=== PATIENT | female | born 1960 | race Caucasian/White ===

== ENCOUNTER 2022-06-19 17:01 | Emergency (ER) | payer SELFPAY ==
--- NOTE | 2022-06-19 18:33 | RAD REPORT ---
EXAM DESCRIPTION: RAD - Forearm Right - 06/19/2022 6:07 pm CLINICAL HISTORY: PAINafter fall 1 month earlier COMPARISON: Forearm Right dated 02/14/2016 FINDINGS: No fracture is identified. There is no dislocation or periosteal reaction noted. No foreign body or other soft tissue abnormality. IMPRESSION: Negative right forearm examination.
--- NOTE | 2022-06-19 18:34 | RAD REPORT ---
EXAM DESCRIPTION: RAD - Tib Fib Right - 06/19/2022 6:07 pm CLINICAL HISTORY: PAINafter fall COMPARISON: No comparisons FINDINGS: No fracture of the tibia or fibula identifiable. Patient has severe knee joint degenerativ e change. Significant patellofemoral and medial compartment joint space narrowing seen with large mar ginal spurs. Intercondylar notch, tibial spine and lateral compartment spurring present to a lesser d egree. No significant degenerative change at the ankle joint. Patient has small plantar and Achilles spurs. There is no dislocation or periosteal reaction noted. No pathologic bone process. Soft tissues are prominent but no air or foreign body seen in the soft tissues. IMPRESSION: Negative right tibia & fibula examination for fracture or acute finding Severe knee joint degenerative change.
[2022-06-19] MEDS ORDERED: HYDROCODONE/APAP 10/325 TAB ONE (19:02)
--- NOTE | 2022-06-19 19:55 | EDPHYS ---
Physician Documentation [facility] Name: aC Marin Age: 62 yrs Sex: Female : 1960 Arrival Date: 06/19/2022 Time: 17:04 Bed 16 Private MD: Renuka Jackson ED Physician Clinton Daniel HPI: 06/19 18:37 This 62 yrs old Female presents to ER via Ambulatory with complaints of Arm Injury, Leg pm1 Injury. 18:37 The patient or guardian complains of contusion, pain. The complaints affect the palmar pm1 aspect of right forearm and right knee and right wright. Context: The problem was sustained at home, resulted from a fall. Onset: The symptoms/episode began/occurred 5 week(s) ago. Treatment prior to arrival includes: no previous treatment. Modifying factors: The symptoms are alleviated by nothing. the symptoms are aggravated by movement. Associated signs and symptoms: The patient has no apparent associated signs or symptoms, Pertinent negatives: deformity, numbness, swelling, tingling. Severity of symptoms: in the emergency department the symptoms have improved. The patient has not experienced similar symptoms in the past. The patient has not recently seen a physician. 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 - Social history:: Smoking status: Patient denies any tobacco usage or history of. ROS: 18:37 Constitutional: Negative for fever, chills, and weight loss, Cardiovascular: Negative pm1 for chest pain, palpitations, and edema, Respiratory: Negative for shortness of breath, cough, wheezing, and pleuritic chest pain, Abdomen/GI: Negative for abdominal pain, nausea, vomiting, diarrhea, and constipation. 18:37 Skin: Negative for injury, rash, and discoloration, Neuro: Negative for headache, weakness, numbness, tingling, and seizure. 18:37 MS/extremity: Positive for pain, of the right knee and right wright and palmar aspect of right forearm. 18:37 All other systems are negative. Exam: 18:37 Constitutional: This is a well developed, well nourished patient who is awake, alert, pm1 and in no acute distress. Head/Face: Normocephalic, atraumatic. 18:37 Skin: Warm, dry with normal turgor. Normal color with no rashes, no lesions, and no evidence of cellulitis. 18:37 Eyes: Exam is negative for acute changes, Periorbital structures: no acute changes, Extraocular movements: no acute changes, Conjunctiva: no acute changes, no injection. 18:37 ENT: Exam is negative for acute changes, Mouth: no acute changes, Lips: normal, moist, Oral mucosa: normal, pink and intact, moist. 18:37 Cardiovascular: Exam negative for acute changes, Rate: normal, Rhythm: regular, Pulses: no pulse deficits are appreciated. 18:37 Respiratory: Exam negative for acute changes, respiratory distress, shortness of breath. 18:37 Musculoskeletal/extremity: Exam is negative for acute changes, Extremities: grossly normal except: noted in the right wright and right knee and palmar aspect of right forearm: There is no evidence of decreased ROM, deformity, ROM: no acute changes. 18:37 Neuro: Exam negative for acute changes, Orientation: is normal, Mentation: is normal, Motor: moves all fours. Vital Signs: 17:17 BP 156 / 82; Pulse 86; Resp 18; Temp 97.7; Pulse Ox 97% ; Weight 136.08 kg; Height 5 ll1 ft. 7 in. (170.18 cm); Pain 7/10; 19:23 BP 147 / 66; Pulse 82; Resp 18 S; Pulse Ox 98% on R/A; ha1 17:17 Body Mass Index 46.99 (136.08 kg, 170.18 cm) ll1 MDM: 17:37 Patient medically screened. pm1 19:54 Data reviewed: vital signs. Data interpreted: Pulse oximetry: on room air is 97 %. pm1 Interpretation: normal. Counseling: I had a detailed discussion with the patient and/or guardian regarding: the historical points, exam findings, and any diagnostic results supporting the discharge/admit diagnosis, radiology results, the need for outpatient follow up, to return to the emergency department if symptoms worsen or persist or if there are any questions or concerns that arise at home. 20:27 ED course: [place] reviewed. pm1 06/19 17:47 Order name: Tib Fib Right XRAY; Complete Time: 18:37 pm1 06/19 17:47 Order name: Forearm Right XRAY; Complete Time: 18:37 pm1 Administered Medications: 19:03 Drug: [place] (HYDROcodone-acetaminophen) 10 mg-325 mg 1 tabs Route: PO; ko1 19:30 Follow up: Response: No adverse reaction; Pain is decreased; RASS: Alert and Calm (0) ha1 Disposition Summary: 06/19/22 19:55 Discharge Ordered Location: Home pm1 Problem: new pm1 Symptoms: have improved pm1 Condition: Stable pm1 Diagnosis - Contusion of right forearm pm1 - Contusion of right knee pm1 - Contusion of right lower leg pm1 Followup: pm1 - With: Emergency Department - When: As needed - Reason: Worsening of condition Followup: pm1 - With: Private Physician - When: 2 - 3 days - Reason: Recheck today's complaints, Continuance of care, Re-evaluation by your physician Discharge Instructions: - Discharge Summary Sheet pm1 - Contusion pm1 - Fall Prevention in the Home, Adult pm1 Forms: - Medication Reconciliation Form pm1 - Thank You Letter pm1 - Antibiotic Education pm1 - Prescription Opioid Use pm1 Prescriptions: - Tylenol-Codeine #3 300 mg-30 mg Oral - take 2 tablet by ORAL route every 6 hours As needed; 20 tablet; Refills: 0, pm1 Product Selection Permitted Signatures: Dispatcher [employer] EDMS Danielito Leo NP [employer]SPORTATION TECHNICIAN pm1 Porfirio Mendez RN RN ll1 Tanja Chávez RN RN ko1 Lina Silva RN ha1 Corrections: (The following items were deleted from the chart) 17:17 17:13 PSHx: R heel ttendon SX; ll1 ll1 18:07 17:48 Knee Right 3 View+RAD.RAD.BRZ ordered. EDWY EDMS
--- NOTE | 2022-06-19 19:55 | ER ---
Nurse's Notes [facility] Name: Ca Marin Age: 62 yrs Sex: Female : 1960 Arrival Date: 06/19/2022 Time: 17:04 Bed 16 Private MD: Renuka Jackson Diagnosis: Contusion of right forearm;Contusion of right knee;Contusion of right lower leg Presentation: 06/19 17:17 Chief complaint: Patient states: Fell May.13. R wrist/lower arm pain and R leg pain ll1 since. Coronavirus screen: Vaccine status: Patient reports being unvaccinated. Client denies travel out of the [place] in the last 14 days. At this time, the client does not indicate any symptoms associated with coronavirus-19. Ebola Screen: Patient denies travel to an Ebola-affected area in the 21 days before illness onset. Initial Sepsis Screen: Does the patient meet any 2 criteria? No. Patient's initial sepsis screen is negative. Does the patient have a suspected source of infection? Yes: Bone or joint infection. Risk Assessment: Do you want to hurt yourself or someone else? Patient reports no desire to harm self or others. Onset of symptoms was May 13, 2022. 17:17 Method Of Arrival: Ambulatory ll1 17:17 Acuity: TABITHA 4 ll1 Triage Assessment: 17:19 General: Appears uncomfortable, Behavior is cooperative, appropriate for age. Pain: ll1 Complains of pain in right arm Pain currently is 7 out of 10 on a pain scale. Quality of pain is described as aching. Musculoskeletal: Circulation, motion, and sensation intact. Capillary refill < 3 seconds, Tenderness present in R wrist. Injury Description: Bruise. 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 - Social history:: Smoking status: Patient denies any tobacco usage or history of. Screenin:30 Abuse screen: Denies threats or abuse. Denies injuries from another. Nutritional ko1 screening: No deficits noted. Tuberculosis screening: No symptoms or risk factors identified. Fall Risk Fall in past 12 months (25 points). Assessment: 17:30 General: Appears in no apparent distress. uncomfortable, Behavior is calm, cooperative, ko1 appropriate for age. Pain: Complains of pain in right arm. Neuro: No deficits noted. Cardiovascular: No deficits noted. Respiratory: No deficits noted. GI: No deficits noted. : No deficits noted. EENT: No deficits noted. Derm: No deficits noted. Musculoskeletal: No deficits noted. Injury Description: Bruise sustained to palmar aspect of right forearm. 19:23 General: Appears in no apparent distress. Behavior is calm, cooperative. Pain: ha1 Complains of pain in right arm and right leg. Neuro: Level of Consciousness is awake, alert, obeys commands, Oriented to person, place, time, situation. Cardiovascular: Patient's skin is warm and dry. Respiratory: Airway is patent Trachea midline Respiratory effort is even, unlabored, Respiratory pattern is regular, symmetrical. GI: No signs and/or symptoms were reported involving the gastrointestinal system. Abdomen is non-distended, obese, Bowel sounds present X 4 quads. : No signs and/or symptoms were reported regarding the genitourinary system. Derm: No signs and/or symptoms reported regarding the dermatologic system. Vital Signs: 17:17 BP 156 / 82; Pulse 86; Resp 18; Temp 97.7; Pulse Ox 97% ; Weight 136.08 kg; Height 5 ll1 ft. 7 in. (170.18 cm); Pain 7/10; 19:23 BP 147 / 66; Pulse 82; Resp 18 S; Pulse Ox 98% on R/A; ha1 17:17 Body Mass Index 46.99 (136.08 kg, 170.18 cm) ll1 ED Course: 17:04 Patient arrived in ED. mr 17:05 Renuka Jackson is Private Physician. mr 17:19 Triage completed. ll1 17:19 Arm band placed on Patient placed in an exam room, on a stretcher. ll1 17:30 Patient has correct armband on for positive identification. Bed in low position. Call ko1 light in reach. Side rails up X 1. 17:35 Danielito Leo NP is PHCP. pm1 17:35 Clinton Daniel MD is Attending Physician. pm1 17:37 Tanja Chávez, RN is Primary Nurse. ko1 18:09 Tib Fib Right XRAY In Process Unspecified. EDMS 18:09 Forearm Right XRAY In Process Unspecified. EDMS 20:37 No provider procedures requiring assistance completed. Patient did not have IV access ha1 during this emergency room visit. Administered Medications: 19:03 Drug: [place] (HYDROcodone-acetaminophen) 10 mg-325 mg 1 tabs Route: PO; ko1 19:30 Follow up: Response: No adverse reaction; Pain is decreased; RASS: Alert and Calm (0) ha1 Medication: 20:37 VIS not applicable for this client. ha1 Outcome: 19:55 Discharge ordered by MD. pm1 20:37 Discharged to home ambulatory. ha1 20:37 Condition: stable 20:37 Discharge instructions given to patient, Instructed on discharge instructions, follow up and referral plans. medication usage, Demonstrated understanding of instructions, follow-up care, medications, Prescriptions given X 1. 20:37 Patient left the ED. ha1 Signatures: Dispatcher [employer] EDTX Ramiro Nathalie LoeDanielito, FEATHER RENOVATOR FEATHER RENOVATOR pm1 Porfirio Mendez RN RN ll1 Lina Silva RN RN ha1 Tanja Chávez, RN RN ko1 Corrections: (The following items were deleted from the chart) 17:17 17:13 PSHx: R heel ttendon SX; ll1 ll1 17:19 17:17 Acuity: TABITHA 3 ll1 ll1
[2022-06-19 21:10] VITALS: TEMP 97.7
[2022-06-19 21:11] VITALS: BP 147/66; O2SAT 98
== END 2022-06-19 20:37 | disposition home or self-care (01) ==
LOC: ER 17:01
DX: S50.11XA Contusion of right forearm, initial encounter (principal); S80.01XA Contusion of right knee, initial encounter; S80.11XA Contusion of right lower leg, initial encounter; I10 Essential (primary) hypertension
CPT/HCPCS: 99283

== ENCOUNTER 2022-09-09 18:22 | Emergency (ER) | payer SELFPAY ==
--- NOTE | 2022-09-09 20:10 | RAD REPORT ---
EXAM DESCRIPTION: RAD - Chest Single View - 09/09/2022 8:00 pm CLINICAL HISTORY: COUGH COMPARISON: CHEST PA AND LAT 2 VIEW dated 03/24/2008 FINDINGS: Lines: None. Lungs: No evidence of edema or pneumonia. Pleural: No significant pleural effusions or pneumothorax. Cardiac: The heart size is within normal limits. Mediastinum: Within normal limits. Bones: No acute fractures. Other: None IMPRESSION: No acute cardiopulmonary disease.
[2022-09-09] MEDS ORDERED: CEFTRIAXONE 1000 MG/VIAL ONE (22:04)
[2022-09-09] MEDS ORDERED: NA CHLORIDE 0.9% 1,000 ML ONE (22:04)
[2022-09-09] MEDS ORDERED: ASPIRIN 81 MG CHEWABLE TABLET ONE (22:04)
[2022-09-09] MEDS ORDERED: predniSONE 20 MG TAB ONE (22:04)
[2022-09-09] MEDS ORDERED: METHYLPREDNISOLONE 125 MG INJ ONE (22:04)
[2022-09-09] MEDS ORDERED: Magnesium Sulfate 2gm IVPB 2 G/50 ML BAG IV ONE (22:05)
[2022-09-09 22:08] LABS: Absolute Lymphocytes (CBC) 2.4 K/uL (0.7-4.9); Hematocrit 44.7 % (36.0-45.0); Lymphocytes % 20.9 % (15.3-44.8); MCV 90.1 fL (80-100); MPV 8.1 fL (7.6-11.3); RBC Red Blood Cell Count 4.96 M/uL (3.86-4.86)
[2022-09-09] MEDS ORDERED: ALBUTEROL 2.5 MG/3 ML NEB SOL ONE (22:22)
[2022-09-09] MEDS ORDERED: IPRATROPIUM BROM 0.5MG/2.5ML ONE (22:23)
[2022-09-09 22:47] LABS: SARS-COV-2 RT PCR NEGATIVE (NEGATIVE)
[2022-09-09] MEDS ORDERED: LEVALBUTEROL 1.25 MG/3 ML NEB ONE (23:08)
[2022-09-09 23:10] LABS: ALT/SGPT 21 U/L (13-56); AST/SGOT 11 U/L (15-37); Albumin 3.5 g/dL (3.4-5.0); Alkaline Phosphatase 113 U/L (45-117); BUN Blood Urea Nitrogen 13 mg/dL (7-18); Bicarbonate 28 mmol/L (21-32); Bilirubin Total 0.3 mg/dL (0.2-1.0); Glomerular Filtration Rate 73 ml/min (=/>90); Glucose Level 103 mg/dL (74-106); Magnesium 2.9 mg/dL (1.6-2.4); NT PRO-BNP 56 pg/mL (<125); Potassium 3.7 mmol/L (3.5-5.1); Protein, Total 6.7 g/dL (6.4-8.2); Sodium Level 140 mmol/L (136-145)
[2022-09-09 23:13] LABS: Bilirubin Direct < 0.1 mg/dL (0-0.2)
--- NOTE | 2022-09-09 23:22 | EDPHYS ---
Physician Documentation [facility] Name: Ca Marin Age: 62 yrs Sex: Female : 1960 Arrival Date: 09/09/2022 Time: 18:28 Bed 9 Private MD: Heidy Miranda ED Physician Nestor Walters HPI: 09/09 21:41 This 62 yrs old Female presents to ER via Ambulatory with complaints of Chest braden Pain, Chest Congestion. 21:41 The patient or guardian reports chest pain that is located primarily in the anterior [facility] chest wall. Onset: 5 day(s) ago. The pain does not radiate. Associated signs and symptoms: Pertinent positives: cough, shortness of breath. The chest pain is described as aching. Duration: The patient or guardian reports multiple episodes, with no pattern. Modifying factors: The symptoms are alleviated by remaining still, the symptoms are aggravated by activity, cough. Severity of pain: At its worst the pain was mild in the emergency department the pain is unchanged. The patient has experienced similar episodes in the past, several times. 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 - Social history:: Smoking status: Patient denies any tobacco usage or history of. - Family history:: not pertinent. ROS: 21:41 Constitutional: Negative for fever, chills, and weight loss, Eyes: Negative for injury, braden pain, redness, and discharge, ENT: Negative for injury, pain, and discharge, Neck: Negative for injury, pain, and swelling, Cardiovascular: Negative for chest pain, palpitations, and edema, Abdomen/GI: Negative for abdominal pain, nausea, vomiting, diarrhea, and constipation, Back: Negative for injury and pain, : Negative for injury, bleeding, discharge, and swelling, MS/Extremity: Negative for injury and deformity, Skin: Negative for injury, rash, and discoloration, Neuro: Negative for headache, weakness, numbness, tingling, and seizure, Psych: Negative for depression, anxiety, suicide ideation, homicidal ideation, and hallucinations, Allergy/Immunology: Negative for hives, rash, and allergies, Endocrine: Negative for neck swelling, polydipsia, polyuria, polyphagia, and marked weight changes, Hematologic/Lymphatic: Negative for swollen nodes, abnormal bleeding, and unusual bruising. 21:41 Respiratory: Positive for cough, shortness of breath, wheezing, inspiratory, expiratory. Exam: 21:41 Constitutional: This is a well developed, well nourished patient who is awake, alert, braden and in no acute distress. Head/Face: Normocephalic, atraumatic. Eyes: Pupils equal round and reactive to light, extra-ocular motions intact. Lids and lashes normal. Conjunctiva and sclera are non-icteric and not injected. Cornea within normal limits. Periorbital areas with no swelling, redness, or edema. ENT: Nares patent. No nasal discharge, no septal abnormalities noted. Tympanic membranes are normal and external auditory canals are clear. Oropharynx with no redness, swelling, or masses, exudates, or evidence of obstruction, uvula midline. Mucous membranes moist. Neck: Trachea midline, no thyromegaly or masses palpated, and no cervical lymphadenopathy. Supple, full range of motion without nuchal rigidity, or vertebral point tenderness. No Meningismus. Chest/axilla: Normal chest wall appearance and motion. Nontender with no deformity. No lesions are appreciated. Cardiovascular: Regular rate and rhythm with a normal S1 and S2. No gallops, murmurs, or rubs. Normal PMI, no JVD. No pulse deficits. Abdomen/GI: Soft, non-tender, with normal bowel sounds. No distension or tympany. No guarding or rebound. No evidence of tenderness throughout. Back: No spinal tenderness. No costovertebral tenderness. Full range of motion. Female : Normal external genitalia. Skin: Warm, dry with normal turgor. Normal color with no rashes, no lesions, and no evidence of cellulitis. MS/ Extremity: Pulses equal, no cyanosis. Neurovascular intact. Full, normal range of motion. Neuro: Awake and alert, GCS 15, oriented to person, place, time, and situation. Cranial nerves II-XII grossly intact. Motor strength 5/5 in all extremities. Sensory grossly intact. Cerebellar exam normal. Normal gait. Psych: Awake, alert, with orientation to person, place and time. Behavior, mood, and affect are within normal limits. 21:41 Respiratory: mild respiratory distress is noted, Respirations: tachypnea, 78 Breath sounds: bronchial sounds, that are mild, decreased breath sounds, that are mild, are scattered, rhonchi, that are mild, are scattered, stridor, is not appreciated, + upper airway congestion. wheezing: inspiratory expiratory 21:46 Musculoskeletal/extremity: ROM: intact in all extremities, Circulation is intact in all braden extremities. Sensation intact. Compartment Syndrome exam of affected extremity: is normal. DVT Exam: No signs of deep vein thrombosis. no pain, no swelling, no tenderness, negative Homans' sign noted on exam, no appreciated bluish discoloration, no erythema, no increased warmth. 21:56 ECG was reviewed by the Attending Physician. [facility] Vital Signs: 19:17 BP 155 / 77; Pulse 78; Resp 22; Temp 98.6; Pulse Ox 98% ; Weight 136.08 kg; Height 5 5 ft. 7 in. (170.18 cm); Pain 0/10; 22:45 BP 114 / 77; Pulse 73; Resp 19 S; Pulse Ox 100% on R/A; lg3 23:35 BP 135 / 75; Pulse 84; Resp 18; Pulse Ox 100% on R/A; lg3 19:17 Body Mass Index 46.99 (136.08 kg, 170.18 cm) 5 MDM: 19:27 Patient medically screened. [facility] 21:47 Differential diagnosis: abnormal EKG, acute myocardial infarction, acute pericarditis, braden gastritis, hiatal hernia, pancreatitis, pleurisy, pneumonia, pulmonary embolus, stable angina, unstable angina. HEART Score: History: Slightly Suspicious (0), ECG: Normal (0), Age: > 45 and < 65 years (1), Risk Factors: 1 or 2 risk factors (1), [+ Family HX] [Obesity] Troponin: < or = 1 x Normal Limit (0). The patient was given aspirin in the Emergency Department. JOVANNA Risk Score: TOTAL SCORE = 0. Data reviewed: vital signs, nurses notes, lab test result(s), EKG, radiologic studies, plain films. Consideration of Admission/Observation Patient was admitted/placed on observation. Escalation of care including admission/observation considered. I considered the following discharge prescriptions or medication management in the emergency department Medications were administered in the Emergency Department. See MAR. Test considered but Not performed: CT: chest. 09/09 19:34 Order name: Basic Metabolic Panel; Complete Time: 23:19 [facility] 09/09 19:34 Order name: CBC with Diff; Complete Time: 22:57 [facility] 09/09 19:34 Order name: LFT's; Complete Time: 23:19 [facility] 09/09 19:34 Order name: Magnesium; Complete Time: 23:19 [facility] 09/09 19:34 Order name: NT PRO-BNP; Complete Time: 23:19 [facility] 09/09 19:34 Order name: PT-INR; Complete Time: 22:23 [facility] 09/09 19:34 Order name: Troponin HS; Complete Time: 23:19 [facility] 09/09 19:34 Order name: XRAY Chest (1 view); Complete Time: 21:15 [facility] 09/09 19:34 Order name: COVID-19/FLU A+B; Complete Time: 22:57 [facility] 09/09 19:34 Order name: Blood Culture Adult (2) 09/09 19:34 Order name: Lactate w/ 2H reflex if indic.; Complete Time: 22:23 [facility] 09/09 21:43 Order name: D-Dimer; Complete Time: 23:21 mw 09/09 19:34 Order name: EKG; Complete Time: 19:35 [facility] 09/09 19:34 Order name: Cardiac monitoring; Complete Time: 21:54 [facility] 09/09 19:34 Order name: EKG - Nurse/Tech; Complete Time: 21:54 [facility] 09/09 19:34 Order name: IV Saline Lock; Complete Time: 21:54 [facility] 09/09 19:34 Order name: Labs collected and sent; Complete Time: 21:54 [facility] 09/09 19:34 Order name: O2 Per Protocol; Complete Time: 21:54 [facility] 09/09 19:34 Order name: O2 Sat Monitoring; Complete Time: 21:54 braden EC:56 Rate is 76 beats/min. Rhythm is regular. QRS Excel is Normal. GA interval is normal. QRS braden interval is normal. QT interval is normal. No Q waves. T waves are Normal. No ST changes noted. Clinical impression: NSR w/ Non-specific ST/T Changes and No evidence of ischemia. Interpreted by me. Reviewed by me. Administered Medications: 22:19 Drug: Aspirin Chewable Tablet 81 mg Route: PO; lg3 23:10 Follow up: Response: No adverse reaction lg3 22:19 Drug: Magnesium Sulfate 2 grams Route: IVPB; Infused Over: 2 hrs; Site: right lg3 antecubital; 23:36 Follow up: Response: No adverse reaction; IV Status: Completed infusion; IV Intake: [id number] 22:20 Drug: NS 0.9% 1000 ml Route: IV; Rate: 75 ml/hr; Site: right antecubital; lg3 23:36 Follow up: Response: No adverse reaction; IV Intake: 200ml lg3 22:20 Drug: Rocephin (cefTRIAXone) 1 grams Route: IV; Rate: per protocol; Site: right lg3 antecubital; 23:09 Follow up: Response: No adverse reaction; IV Intake: 10ml lg3 22:20 Drug: predniSONE 60 mg Route: PO; lg3 23:09 Follow up: Response: No adverse reaction lg3 22:20 Drug: SOLU-Medrol (methylPrednisoLONE) 125 mg Route: IVP; Site: right antecubital; lg3 23:09 Follow up: Response: No adverse reaction lg3 22:43 Drug: Albuterol - atroVENT (ipratropium) (3:1) (2.5 mg - 0.5 mg) 3 ml Route: Nebulizer; lg3 23:10 Follow up: Response: No adverse reaction lg3 23:03 CANCELLED (Other Intervention Used): Albuterol 5 mg Inhalation once lg3 23:09 Drug: Xopenex (levalbuterol) (3) 1.25 mg Route: Inhalation; lg3 23:36 Follow up: Response: No adverse reaction lg3 Disposition Summary: 09/09/22 23:21 Discharge Ordered Location: Home braden Problem: new braden Symptoms: have improved braden Condition: Stable braden Diagnosis - COPD/ Chronic obstructive pulmonary disease with (acute) exacerbation braden - Dyspnea braden - Obesity, unspecified braden Followup: braden - With: Private Physician - When: 2 - 3 days - Reason: Recheck today's complaints, Continuance of care, Re-evaluation by your physician Followup: braden - With: - When: 2 - 3 days - Reason: Recheck today's complaints, Re-evaluation by your physician Discharge Instructions: - Discharge Summary Sheet braden - Chronic Bronchitis, Adult braden - Chronic Obstructive Pulmonary Disease braden - Chronic Obstructive Pulmonary Disease Exacerbation braden - Chronic Obstructive Pulmonary Disease, [id number] braden - Obesity, Adult braden - Cough, Adult [facility] Forms: - Medication Reconciliation Form [facility] - Thank You Letter [facility] - Antibiotic Education [facility] - Prescription Opioid Use [facility] Prescriptions: - Augmentin 875-125 mg Oral Tablet - take 1 tablet by ORAL route every 12 hours for 10 days; 20 tablet; Refills: 0, [facility] Product Selection Permitted - Albuterol Sulfate 2.5 mg /3 mL (0.083 %) Inhalation Solution for Nebulization - inhale 1 unit by NEBULIZATION route every 8 hours As needed; 1 box; Refills: 0, [facility] Product Selection Permitted - Prednisone 20 mg Oral Tablet - take 2 tablets by ORAL route once daily for 5 days; 10 tablet; Refills: 0, [facility] Product Selection Permitted - albuterol sulfate 90 mcg/actuation Inhalation HFA aerosol inhaler - inhale 2 puff by INHALATION route every 4-6 hours; 1 Pump; Refills: 0, Product [facility] Selection Permitted Signatures: Dispatcher [employer] Nestor Castillo MD MD cha Gibson, Lacie, RN RN lg3 Anne Bhatia RN RN jh5 Corrections: (The following items were deleted from the chart) 23:03 22:58 Albuterol 5 mg Inhalation once ordered. braden lg3
--- NOTE | 2022-09-09 23:22 | ER ---
Nurse's Notes [facility] Name: Ca Marin Age: 62 yrs Sex: Female : 1960 Arrival Date: 09/09/2022 Time: 18:28 Bed 9 Private MD: Heidy Miranda Diagnosis: COPD/ Chronic obstructive pulmonary disease with (acute) exacerbation;Dyspnea;Obesity, unspecified Presentation: 09/09 19:17 Chief complaint: Patient states: I have a heart arrythmia, and i had a flare up and I jh5 been SOB since [place]. Coronavirus screen: Vaccine status: Patient reports being unvaccinated. Client denies travel out of the [place] in the last 14 days. Ebola Screen: Patient negative for fever greater than or equal to 101.5 degrees Fahrenheit, and additional compatible Ebola Virus Disease symptoms Patient denies exposure to infectious person. Patient denies travel to an Ebola-affected area in the 21 days before illness onset. Initial Sepsis Screen: Does the patient meet any 2 criteria? No. Patient's initial sepsis screen is negative. Does the patient have a suspected source of infection? No. Patient's initial sepsis screen is negative. Risk Assessment: Do you want to hurt yourself or someone else? Patient reports no desire to harm self or others. 19:17 Method Of Arrival: Ambulatory [facility] 19:17 Acuity: TABITHA 3 [facility] 23:36 Onset of symptoms is unknown. lg3 Triage Assessment: 19:19 General: Appears uncomfortable, obese, Behavior is calm, cooperative, appropriate for [facility] age. Pain: Denies pain. Cardiovascular: Reports shortness of breath. 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 - Social history:: Smoking status: Patient denies any tobacco usage or history of. - Family history:: not pertinent. Screenin:45 [facility] ED Fall Risk Assessment (Adult) History of falling in the last 3 months, lg3 including since admission No falls in past 3 months (0 pts) Confusion or Disorientation No (0 pts) Intoxicated or Sedated No (0 pts) Impaired Gait No (0 pts) Mobility Assist Device Used Yes (1 pt) Altered Elimination No (0 pt) Score/Fall Risk Level 0 - 2 = Low Risk Oriented to surroundings, Maintained a safe environment, Provided non-skid footwear, Used ambulatory aids as needed (educated on \T\ assisted with). Abuse screen: Denies threats or abuse. Denies injuries from another. Nutritional screening: No deficits noted. Tuberculosis screening: No symptoms or risk factors identified. Assessment: 22:45 General: Appears in no apparent distress. comfortable, Behavior is calm, cooperative. lg3 Pain: Complains of pain in chest Pain radiates to anterior aspect of left upper chest Pain began in July. Neuro: No deficits noted. Palumbo Agitation-Sedation Scale (RASS): 0 - Alert and Calm Level of Consciousness is awake, alert, obeys commands, Oriented to person, place, time, situation. Cardiovascular: No deficits noted. Capillary refill < 3 seconds Clubbing of nail beds is absent JVD is absent Patient's skin is warm and dry. Respiratory: Reports shortness of breath cough that is Airway is patent Trachea midline Respiratory effort is even, unlabored, Respiratory pattern is regular, symmetrical, Breath sounds with wheezes bilaterally. GI: No deficits noted. No signs and/or symptoms were reported involving the gastrointestinal system. Abdomen is round non-distended. : No deficits noted. No signs and/or symptoms were reported regarding the genitourinary system. EENT: No deficits noted. No signs and/or symptoms were reported regarding the EENT system. Derm: No deficits noted. No signs and/or symptoms reported regarding the dermatologic system. Skin is intact, is healthy with good turgor, Skin is dry, Skin is normal. Musculoskeletal: No deficits noted. No signs and/or symptoms reported regarding the musculoskeletal system. Circulation, motion, and sensation intact. Range of motion: intact in all extremities. 23:35 Reassessment: Patient appears in no apparent distress at this time. Patient and/or lg3 family updated on plan of care and expected duration. Pain level reassessed. Patient is alert, oriented x 3, equal unlabored respirations, skin warm/dry/pink. Patient states feeling better. Patient states symptoms have improved. 23:36 Respiratory: Breath sounds are clear bilaterally. lg3 Vital Signs: 19:17 BP 155 / 77; Pulse 78; Resp 22; Temp 98.6; Pulse Ox 98% ; Weight 136.08 kg; Height 5 [facility] ft. 7 in. (170.18 cm); Pain 0/10; 22:45 BP 114 / 77; Pulse 73; Resp 19 S; Pulse Ox 100% on R/A; lg3 23:35 BP 135 / 75; Pulse 84; Resp 18; Pulse Ox 100% on R/A; lg3 19:17 Body Mass Index 46.99 (136.08 kg, 170.18 cm) [facility] ED Course: 18:28 Patient arrived in ED. am2 18:28 Heidy Miranda FNP-C is Private Physician. am2 18:54 [facility] Madison [facility] 18:54 Elfego Reynoso MD is Attending Physician. [facility] 19:19 Triage completed. [facility] 19:19 Arm band placed on left wrist. [facility] 19:27 Nestor Walters MD is Attending Physician. braden 20:02 XRAY Chest (1 view) In Process Unspecified. EDMS 21:54 Troponin HS Sent. lg3 21:54 PT-INR Sent. lg3 21:54 NT PRO-BNP Sent. lg3 21:54 Magnesium Sent. lg3 21:54 LFT's Sent. lg3 21:54 CBC with Diff Sent. lg3 21:54 Basic Metabolic Panel Sent. lg3 21:54 COVID-19/FLU A+B Sent. lg3 21:54 Blood Culture Adult (2) Sent. lg3 21:54 D-Dimer Sent. lg3 22:20 Inserted saline lock: 20 gauge in right antecubital area, using aseptic technique. lg3 Blood collected. 22:45 Patient has correct armband on for positive identification. Placed in gown. Bed in low lg3 position. Call light in reach. Side rails up X 1. Client placed on continuous cardiac and pulse oximetry monitoring. NIBP monitoring applied. metal bonding assembler on. Door closed. Noise minimized. Warm blanket given. Family accompanied patient. 22:45 Patient maintains SpO2 saturation greater than 95% on room air. lg3 23:21 Kip Olmstead MD is Referral Physician. braden 23:35 No provider procedures requiring assistance completed. IV discontinued, intact, lg3 bleeding controlled, No redness/swelling at site. Pressure dressing applied. Administered Medications: 22:19 Drug: Aspirin Chewable Tablet 81 mg Route: PO; lg3 23:10 Follow up: Response: No adverse reaction lg3 22:19 Drug: Magnesium Sulfate 2 grams Route: IVPB; Infused Over: 2 hrs; Site: right lg3 antecubital; 23:36 Follow up: Response: No adverse reaction; IV Status: Completed infusion; IV Intake: [id number] 22:20 Drug: NS 0.9% 1000 ml Route: IV; Rate: 75 ml/hr; Site: right antecubital; lg3 23:36 Follow up: Response: No adverse reaction; IV Intake: 200ml lg3 22:20 Drug: Rocephin (cefTRIAXone) 1 grams Route: IV; Rate: per protocol; Site: right lg3 antecubital; 23:09 Follow up: Response: No adverse reaction; IV Intake: 10ml lg3 22:20 Drug: predniSONE 60 mg Route: PO; lg3 23:09 Follow up: Response: No adverse reaction lg3 22:20 Drug: SOLU-Medrol (methylPrednisoLONE) 125 mg Route: IVP; Site: right antecubital; lg3 23:09 Follow up: Response: No adverse reaction lg3 22:43 Drug: Albuterol - atroVENT (ipratropium) (3:1) (2.5 mg - 0.5 mg) 3 ml Route: Nebulizer; lg3 23:10 Follow up: Response: No adverse reaction lg3 23:03 CANCELLED (Other Intervention Used): Albuterol 5 mg Inhalation once lg3 23:09 Drug: Xopenex (levalbuterol) (3) 1.25 mg Route: Inhalation; lg3 23:36 Follow up: Response: No adverse reaction lg3 Medication: 23:36 VIS not applicable for this client. lg3 Intake: 23:09 IV: 10ml; Total: 10ml. lg3 23:36 IV: 50ml; Total: 60ml. lg3 23:36 IV: 200ml; Total: 260ml. lg3 Outcome: 23:21 Discharge ordered by . braden 23:35 Discharged to home ambulatory, with significant other. lg3 23:35 Condition: stable 23:35 Discharge instructions given to patient, Instructed on discharge instructions, follow up and referral plans. medication usage, Demonstrated understanding of instructions, follow-up care, medications, Prescriptions given X 4. 23:37 Patient left the ED. lg3 Signatures: Dispatcher [employer] EDNestor Howard MD MD cha Mickail, Joel, PA PA jmm Moreno, Amanda am2 Gibson, Lacie, RN RN lg3 Anne Bhatia RN RN jh5
[2022-09-09 23:55] VITALS: TEMP 98.6
[2022-09-10 00:12] VITALS: BP 135/75; O2SAT 100
--- NOTE | 2022-09-10 16:55 | EKG ---
Test Date: 2022-09-09 Test Time: 21:48:47 Cooking Chef: RM MEASUREMENT RESULTS: Intervals: Rate: 76 NM: 164 QRSD: 80 QT: 392 QTc: 441 [place]: P: 73 NM: 164 QRS: 67 T: 65 INTERPRETIVE STATEMENTS: Normal sinus rhythm Normal ECG Compared to ECG 03/24/2008 15:56:56 No significant changes Electronically Signed On 09-10-22 16:53:26 CLINICAL ACCOUNT EXECUTIVE by Zeyad Schreiber
== END 2022-09-09 23:37 | disposition home or self-care (01) ==
LOC: ER 18:22
DX: J44.1 Chronic obstructive pulmonary disease with (acute) exacerbation (principal); R06.00 Dyspnea, unspecified; E66.9 Obesity, unspecified; Z68.42 Body mass index [BMI] 45.0-49.9, adult; I10 Essential (primary) hypertension
CPT/HCPCS: 0240U; 36415; 71045; 80048; 80076; 83605; 83735; 83880; 84484; 85025; 85379; 85610; 87040; 93005; J2930; J3475; J7030; J7512; J7613; J7614; J7644